=== PATIENT | female | born 1945 | race Caucasian/White ===

== ENCOUNTER 2023-11-10 18:16 | Emergency (ER) | payer MEDICARE, OTHER ==
[~2023-11-10] VITALS: Ht 170.2 cm; Wt 83.9 kg
[~2023-11-10 18:16] MED LIST: ATORVASTATIN CA20 MG PO; BACTRIM DS TAB1 EACH PO; CARVEDILOL12.5 MG PO; CLONIDINE HCL0.2 MG PO; FLUOXETINE HCL20 MG PO; FUROSEMIDE40 MG PO; KLOR-CON 88 MEQ; LOSARTAN POTASS25 MG PO; METFORMIN HCL500 MG PO
[2023-11-10] MEDS: TRAMADOL HCL 50 MG TAB PO ONE (19:04)
[2023-11-10 19:27] LABS: BASOPHILS # (AUTO) 0.1 (0.0-0.1); BASOPHILS % 0.8 % (0.0-1.0); EOSINOPHILS # (AUTO) 0.1 (0.0-0.4); HEMATOCRIT 44.9 % (34.2-44.1); HEMOGLOBIN 14.2 g/dL (12.0-16.0); LYMPHOCYTES # (AUTO) 1.9 (1.0-3.2); LYMPHOCYTES % 31.7 % (18.0-39.1); MEAN CORPUSCULAR HEMOGLOBIN 30.1 pg (28-32); MEAN CORPUSCULAR HGB CONC 31.6 g/dL (31-35); MEAN CORPUSCULAR VOLUME 95.1 fL (81-99); MONOCYTES # (AUTO) 0.4 (0.2-0.8); MONOCYTES % 6.8 % (4.4-11.3); NEUTROPHILS # (AUTO) 3.6 (2.1-6.9); NEUTROPHILS % 59.5 % (38.7-80.0); PLATELET COUNT 215 x10e3/uL (140-360); RED BLOOD COUNT 4.72 x10e6/uL (3.6-5.1); RED CELL DISTRIBUTION WIDTH 13.1 % (11.7-14.4); WHITE BLOOD COUNT 6.05 x10e3/uL (4.8-10.8)
[2023-11-10 19:44] LABS: ALBUMIN 4.2 g/dL (3.5-5.0); ALBUMIN/GLOBULIN RATIO 1.2 (0.8-2.0); ANION GAP 14.3 mmol/L (8-16); BILIRUBIN,TOTAL 0.6 mg/dL (0.2-1.2); CREATININE, SERUM 1.17 mg/dL (0.57-1.11); POTASSIUM 4.3 mmol/L (3.5-5.1); TOTAL PROTEIN 7.6 g/dL (6.5-8.1)
[2023-11-10] MEDS ORDERED: ULTRAM 50MG50 MG PO (21:58)
[2023-11-10] MEDS ORDERED: ONDANSETRON ODT4 MG SL (21:58)
[2023-11-10] MEDS: ONDANSETRON HCL INJ 2MG/ML 2ML 2 MG/ML VIAL IV STA (22:00)
[2023-11-10 22:35] VITALS: PULSE 63; RESP 18; TEMP 98.1; O2SAT 96
== END 2023-11-10 23:00 | disposition home or self-care (01) ==
LOC: ER 19:00
DX: M79.662 Pain in left lower leg (principal); M79.661 Pain in right lower leg; M79.89 Other specified soft tissue disorders; R60.9 Edema, unspecified; E11.65 Type 2 diabetes mellitus with hyperglycemia; I10 Essential (primary) hypertension; J44.9 Chronic obstructive pulmonary disease, unspecified
CPT/HCPCS: 36415; 80053; 82550; 85025; 93970; 99284